=== PATIENT | male | born 1995 | race Two or more races ===

== ENCOUNTER 2022-10-08 17:46 | Emergency (ER) | payer OTHER, SELFPAY ==
--- NOTE | ~2022-10-08 | CT_ITS ---
EXAMINATION: CT PELVIS WITH CONTRAST CLINICAL INFORMATION: Rectal pain. COMPARISON: None available. TECHNIQUE: Helical scanning was performed with submillimeter collimation through the pelvis with the use of oral contrast and during bolus intravenous injection of 85 mL of Omnipaque 350 intravenous contrast. Sagittal and coronal multiplanar 2-D reconstructions were obtained. This CT examination was performed using dose optimization techniques as appropriate, variously including the following: *Automated exposure control *Adjustment of mA and/or kV according to patient size (this includes techniques or standardized protocols for targeted exams where dose is matched to indication/reason for exam; i.e. extremities or head) *Use of iterative reconstruction technique DLP: 367 mGy-cm FINDINGS: PELVIS: Normal appendix. Nonobstructive appearance of the bowel. No colonic wall thickening. No rectal wall thickening. No perianal inflammation or collection. No lymphadenopathy. No abdominal wall hernia. OSSEOUS STRUCTURES: No fracture or dislocation. The hips are well aligned. The sacroiliac joints and pubic symphysis are well aligned. CT/CT pelvis w IV con IMPRESSION: No acute abnormality of the pelvis. No rectal wall thickening. No fluid collection.
[2022-10-08 18:26] VITALS: BP 151/100; PULSE 92; RESP 16; TEMP 36.2; O2SAT 100; BMI 34.0
--- NOTE | 2022-10-08 18:30 | ED.GENADULT ---
HPI - General Adult General Chief complaint: General Medical Stated complaint: Pressure pain in groins Time Seen by Provider: 10/08/22 20:44 Source: patient and family Mode of arrival: ambulatory Limitations: no limitations History of Present Illness HPI narrative: 27-year-old male with history of rectal abscess here with complaints of rectal pain and pressure for last 1 week. No fevers, chills, body aches. Patient participates in receptive anal intercourse. Related Data Previous Rx's Medication Instructions Recorded amoxicillin 875 mg-potassium 1 tab PO BID #14 tabs 10/08/22 clavulanate 125 mg tablet oxycodone 5 mg tablet 5 mg PO Q6H PRN pain #8 tabs 10/08/22 Allergies Allergy/AdvReac Type Severity Reaction Status Date / Time Unable to Assess Allergy Verified 10/08/22 20:59 Review of Systems Review of Systems: Yes all other systems are reviewed and are negative Constitutional: Constitutional: Reports no additional constitutional complaints, Denies body ache(s), Denies chills, Denies fever(s), Denies headache(s) and Denies weakness Eyes: Eyes: Reports no additional eye complaints and Denies change in vision ENT: Reports system reviewed and no additional complaints, except as documented, Denies dizziness, Denies headache(s), Denies nasal congestion, Denies nasal discharge and Denies neck pain Cardiovascular: Cardiovascular: Reports no additional cardiovascular complaints, Denies chest pain, Denies leg edema and Denies dyspnea Respiratory: Respiratory: Reports no additional respiratory complaints, Denies cough and Denies dyspnea Gastrointestinal: Gastrointestinal: Reports no additional gastrointestinal complaints, Denies abdominal pain, Denies diarrhea, Denies nausea and Denies vomiting Comments: +rectal pain/pressure Genitourinary: Genitourinary: Denies urinary incontinence Musculoskeletal: Musculoskeletal: Reports no additional musculoskeletal complaints, Denies back pain, Denies arthralgias, Denies joint swelling, Denies neck pain, Denies numbness and Denies tingling Integumentary/Breasts: Skin/Breast: Reports system reviewed and no additional complaints, except as docu and Denies rash Neurologic: Reports system reviewed and no additional complaints, except as documented, Denies dizziness, Denies headache(s), Denies numbness, Denies tingling and Denies weakness [facility] Past Medical History Attestation statement: The following information was validated with the patient. Source: old records reviewed and nursing notes reviewed Social History Social History Alcohol intake: never Smoked in Last 30 Days: No Use of substances other than those prescribed or required for medical reasons: No Advance Directives: No Advance Directives Information Provided: No Physical Exam ED Vital Signs: Vital Signs - 24 hr 10/08/22 18:26 10/08/22 20:44 Temperature 97.2 F 98.1 F Pulse Rate 92 78 Respiratory Rate 16 17 Blood Pressure 151/100 H 137/90 H Pulse Oximetry 100 98 Oxygen Delivery Method Room Air BMI result Body Mass Index 34.0 Const General: cooperative, healthy appearing, comfortable and no acute distress Orientation/consciousness: patient oriented x3 Limitations: no limitations HENMT Head: Yes normal to inspection Ears: hearing grossly normal bilaterally Eyes General: appearance normal, both eyes and all related structures Pupils: Equal, round and reactive pupils present Neck Neck: Yes normal visual inspection Chest Chest palpation & inspection: normal inspection of the chest Resp Effort & Inspection: normal respiratory effort Auscultation: clear to auscultation bilaterally Cardio Rate: regular rate Rhythm: regular rhythm Peripheral pulses: Peripheral pulses 2+ throughout GI 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 The anus is indurated and tender Inspection: Yes normal to inspection Palpation (GI): Soft to palpation and nontender Skin General skin exam: no rashes or lesions noted Neuro General: patient oriented x3 and moves all extremities Cranial nerves: Yes Equal, round and reactive pupils present Cognition (Neuro): normal cognition Gait exam (Neuro): Normal gait present Extrem General: Yes normal to inspection, Yes no pedal edema and Yes no calf tenderness Course Course Course Narrative: This is an RME: Additional HPI, ROS, PE not included below will be deferred to primary provider. This is a 89-x[age]-male presenting to the emergency department with complaints of ?rectal abscess x 1 week. Hx of hemorrhoids over the last few weeks, but noticed increased pressure and pain. No fevers or chills. Unable to visualize area secondary to limited privacy in triage. Plan: further physical exam in main emergency department. Reevaluation(s) Reevaluation #1: CT shows no evidence of abscess or proctitis. However clinically on exam patient has significant induration and discomfort around the anal area. Therefore I will treat him with antibiotics. He may also have a fissure which I cannot see so we recommended pain management and topical [id number] creams. Recommend he follow-up with primary care doctor. Reviewed worrisome signs and symptoms when to return to the emergency room. Comfortable plan for discharge home for Medications Administered Discontinued Medications Generic Name Dose Route Start Last Admin Trade Name Pieter PRN Reason Stop Dose Admin Iohexol 100 ml 10/08/22 22:16 10/08/22 22:17 Iohexol 350 Mg/Ml 100 Ml Infus..Btl IV 10/08/22 22:17 85 ml ONCE ONE Administration Morphine Sulfate 4 mg 10/08/22 21:01 10/08/22 21:34 Morphine Sulfate 4 Mg/Ml Cartridge IVPUSH 10/08/22 21:02 4 mg ONCE ONE Administration Protocol Ondansetron HCl 4 mg 10/08/22 21:01 10/08/22 21:34 Ondansetron Hcl 4 Mg/2 Ml Vial IVPUSH 10/08/22 21:02 4 mg ONCE ONE Administration Medical Decision Making Medical Decision Making [facility] Narrative: 27 yo male with history of rectal abscess here with 3 days of rectal pain and pressure. On exam patient with significant anal tenderness and induration. Will need labs, CT pelvis with IV contrast Differential Diagnosis Differential Diagnoses: The differential diagnosis associated with the presentation includes Rectal abscess, Proctitis Lab Data [facility] Lab Attestation statement: I reviewed the patient's lab results. 10/08/22 21:17 10/08/22 21:17 Labs: Lab Results 10/08/22 10/08/22 10/08/22 Range/Units 21:17 21:17 21:17 WBC 8.7 (4.8-10.8) X10*3/uL RBC 5.26 (4.60-5.80) X10*6/uL Hgb 15.1 (14.0-18.0) g/dl Hct 45.0 (42.0-52.0) % MCV 85.6 (80.0-98.0) fL MCH 28.7 (27.0-33.0) pg MCHC 33.6 (31.0-36.0) g/dl RDW 12.4 (11.0-16.0) % Plt Count 226 (160-400) X10*3/uL MPV 10.9 (9.4-12.4) fL Immature Gran % (Auto) 0.2 (0.0-0.4) % Neut % (Auto) 63.8 (45-73) % Lymph % (Auto) 24.5 (20-40) % [place] % (Auto) 9.8 (2-11) % Eos % (Auto) 1.2 (0-4) % Baso % (Auto) 0.5 (0-2) % Lymph # (Auto) 2.1 (1.2-4.9) X10*3/uL [place] # (Auto) 0.9 (0.1-1.2) X10*3/uL Eos # (Auto) 0.1 (0.0-0.4) X10*3/uL Baso # (Auto) 0.0 (0.0-0.2) X10*3/uL Abs Immat Gran (auto) 0.02 (0.00-0.03) X10*3/uL Absolute Neuts (auto) 5.5 (2.0-8.3) x10*3/uL Absolute Nucleated RBC 0.000 (0.0-0.012) X10*3/uL Nucleated RBC % (auto) 0.0 (0.0-0.2) /100WBC Sodium 140 (135-145) mmol/L Potassium 3.7 (3.3-5.1) mmol/L Chloride 107 (96-108) mmol/L Carbon Dioxide 25 (22-29) mmol/L Anion Gap 12 (12-20) BUN 14 (9-16) mg/dL Creatinine 0.86 (0.5-1.4) mg/dL Estim Creat Clear Calc 152.2 Estimated GFR > 60 Random Glucose 95 (60-115) mg/dL Lactic Acid 1.1 (0.5-2.0) mmol/L Calcium 9.3 (8.4-10.2) mg/dL Total Bilirubin 0.4 (0.0-1.0) mg/dL Direct Bilirubin 0.1 (0.0-0.5) mg/dL AST 19 (5-37) U/L ALT 22 (0-40) U/L Alkaline Phosphatase 79 (39-117) U/L Total Protein 7.4 (6.5-8.0) g/dL Albumin 4.6 (3.5-5.0) g/dL Independent Interpretation I performed an independent interpretation of an: CT Scan Interpretation: I independently reviewed the CT scan and agree with the radiologist report Radiology Impression Discussion of test interpretation with radiology: I have reviewed the radiologist's reading. Radiologist Impression: FINDINGS: PELVIS: Normal appendix. Nonobstructive appearance of the bowel. No colonic wall thickening. No rectal wall thickening. No perianal inflammation or collection. No lymphadenopathy. No abdominal wall hernia.? OSSEOUS STRUCTURES: No fracture or dislocation. The hips are well aligned. The sacroiliac joints and pubic symphysis are well aligned.? CT/CT pelvis w IV con IMPRESSION: No acute abnormality of the pelvis. No rectal wall thickening. No fluid collection. ? Discharge Plan Discharge Clinical Impression: Pain, rectal Patient Disposition: Home, Self-Care Instructions: Sitz Bath (DC), Rectal Pain (ED) Additional Instructions: Avoid constipation Increase fluids and fiber in the diet You may continue the topical cream Prescriptions: New amoxicillin-pot clavulanate 875-125 mg tablet 1 tab PO BID Qty: 14 0RF oxycodone 5 mg tablet 5 mg PO Q6H PRN (Reason: pain) Qty: 8 0RF Rx Instructions: Partial Fill upon patient request. Referrals: Felton Capps PA-C [Primary Care Provider] - 1 week
[2022-10-08 20:44] VITALS: BP 137/90; PULSE 78; RESP 17; TEMP 36.7; O2SAT 98
[2022-10-08 21:24] LABS: MANUAL DIFF FLAG NO
[2022-10-08 21:25] LABS: Basophils Percent Auto 0.5 % (0-2); Eosinophils Absolute Auto 0.1 X10*3/uL (0.0-0.4); Eosinophils Percent Auto 1.2 % (0-4); Hemoglobin 15.1 g/dl (14.0-18.0); Imm Gran Abs Auto 0.02 X10*3/uL (0.00-0.03); Imm Gran Pct Auto 0.2 % (0.0-0.4); Lymphocytes Absolute Auto 2.1 X10*3/uL (1.2-4.9); Lymphocytes Percent Auto 24.5 % (20-40); Mean Corpuscular HGB Conc 33.6 g/dl (31.0-36.0); Mean Corpuscular Hemoglobin 28.7 pg (27.0-33.0); Mean Corpuscular Volume 85.6 fL (80.0-98.0); Mean Platelet Volume 10.9 fL (9.4-12.4); Monocytes Absolute Auto 0.9 X10*3/uL (0.1-1.2); Monocytes Percent Auto 9.8 % (2-11); Neutrophils Absolute Auto 5.5 x10*3/uL (2.0-8.3); Neutrophils Percent Auto 63.8 % (45-73); Platelet Count 226 X10*3/uL (160-400); Red Blood Count 5.26 X10*6/uL (4.60-5.80); Red Cell Distribution Width 12.4 % (11.0-16.0); White Blood Count 8.7 X10*3/uL (4.8-10.8)
[2022-10-08] MEDS: Morphine Sulfate 4 MG/ML CARTRIDGE IVPUSH (21:34)
[2022-10-08] MEDS: ondansetron HCL 4 MG/2 ML VIAL IVPUSH (21:34)
[2022-10-08 21:38] LABS: Lactic Acid 1.1 mmol/L (0.5-2.0)
[2022-10-08 21:43] LABS: Alanine Aminotransferase 22 U/L (0-40); Albumin Level 4.6 g/dL (3.5-5.0); Alkaline Phosphatase 79 U/L (39-117); Anion Gap 12 (12-20); Aspartate Amino Transferase 19 U/L (5-37); Bilirubin Direct 0.1 mg/dL (0.0-0.5); Bilirubin Total 0.4 mg/dL (0.0-1.0); Blood Urea Nitrogen 14 mg/dL (9-16); Calcium 9.3 mg/dL (8.4-10.2); Carbon Dioxide 25 mmol/L (22-29); Chloride 107 mmol/L (96-108); Creatinine Clr Calc Pharmacy 152.2; Estimated Glomerular Filt Rate > 60; Glucose Random 95 mg/dL (60-115); Potassium 3.7 mmol/L (3.3-5.1); Sodium 140 mmol/L (135-145); Total Protein 7.4 g/dL (6.5-8.0)
--- NOTE | 2022-10-08 21:51 | PC.NURSE ---
medicated with morphine and zofran, tolerated well
[2022-10-08] MEDS: iohexoL 350 MG/ML 100 ML INFUS..BTL IV (22:17)
--- NOTE | 2022-10-08 23:04 | PC.NURSE ---
pt reassessed, reported pain decreased to tolerable level, nausea subsided
== END 2022-10-08 23:46 | disposition home or self-care (01) ==
PROVIDERS: Nurse Practitioner Family; Emergency Provider Student in an Organized Health Care Education/Training Program; PCP Physician Assistant
DX: K62.89 Other specified diseases of anus and rectum (principal); R10.2 Pelvic and perineal pain; Z79.899 Other long term (current) drug therapy
CPT/HCPCS: 36415; 72193; 80048; 80076; 83605; 85025; 87040; 96374; 96375; 99284; J2270; J2405; Q9967

== ENCOUNTER 2023-01-19 10:24 | Outpatient (AMB) | payer OTHER, SELFPAY ==
[2023-01-19 10:35] VITALS: BP 118/86; PULSE 101; RESP 17; O2SAT 98; BMI 33.7
--- NOTE | 2023-01-19 10:35 | A.OFFPC_ITS ---
Vital Signs 01/19/23 10:35 Height 5 ft 9 in Weight 228 lb 2 oz BMI 33.7 BP 118/86 Blood Pressure Location Lt brachial Position Sitting Respiration 17 Pulse 101 H Pulse Source Pulse Oximeter Pulse Oximetry (%) 98 Oxygen Delivery Method Room Air Intake Visit Reasons: New Patient- requesting physical Intake Note: Patient is a new patient here to establish care. Pt requesting PE, has not seen a PCP in over six years. 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 Patient has not seen primary care provider in over 6 years. Patient has a past medical history significant for obesity, reports having varicose viens that bother him on occasion. He does report working at [employer] and he has to stand a lot work. Also report his right testicle is somewhat tender over the last several months. 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 1. Little interest or pleasure in doing things: not at all 2. Feeling down, depressed, or hopeless: several days 3. Trouble falling or staying asleep, or sleeping too much: several days 4. Feeling tired or having little energy: more than half the days 5. Poor appetite or overeating: several days 6. Feeling bad about yourself - or that you are a failure or have let yourself or your family down: several days 7. Trouble concentrating on things, such as reading the newspaper or watching television: not at all 8. Moving or speaking so slowly that other people could have noticed. Or the opposite - being so fidgety or restless that you have been moving around a lot more than usual: several days 9. Thoughts that you would be better off or of hurting yourself in some way: not at all Total score: 7 Depression Screening Interpretation: Positive 61308 - PHQ-9 Billing: Yes Source: Developed by Drs. Khoi Batista, Court Cohen, Robert Cardoza and colleagues, with an educational greta from [employer]. Thrive Questionnaire Date Thrive assessed: 01/19/23 I am a: Patient What is your living situation today?: I have a steady place to live Within the past 12 months, did the food you bought not last and you didn't have the money to get more?: Never true Within the past 12 months, did you worry whether your food would run out before you got money to buy more?: Never true Do you have trouble paying for medicines?: No Do you have trouble getting transportation to medical appointments?: No Do you have trouble paying your heating and electricity bill?: No Do you have trouble taking care of your child, family member or friend?: No Do you have trouble with day-to-day activities such as bathing, preparing meals, shopping, managing finances, etc.?: No Are you currently unemployed and looking for a job?: No Are you interested in more education?: No Please select the resources that you would like help with: None Currently or been in a relationship where the following occur: no concerns reported AUDIT C Alcohol Use Questionnaire (AUDIT-C) 1. How often do you have a drink containing alcohol?: 2-4 times a month 2. How many drinks containing alcohol do you have on a typical day when you are drinking?: 7 to 9 3. How often do you have six or more drinks on one occasion?: Less than monthly Total Score: 6 JANIE-7 AMB Questionnaire JANIE-7 Date JANIE - 7 assessed: 01/19/23 Feeling nervous, anxious, or on edge: 1 = Several days Not being able to stop or control worryin = Nearly every day Worrying too much about different things: 3 = Nearly every day Trouble relaxin = More than half the days Being so restless that it is hard to sit still: 1 = Several days Becoming easily annoyed or irritable: 2 = More than half the days Feeling afraid as if something awful might happen: 3 = Nearly every day Total JANIE-7 score (0-4 normal; 5-9 mild; 10-14 moderate; 15-21 severe): 15 Source: Developed by Drs. Khoi Batista, Court Cohen, Robert Cardoza and colleagues, with an educational greta from [employer]. JANIE-7 Assessment Billing JANIE-7 Assessment Tool: JANIE-7 Assessment 42430 Review of Systems Const Denies body aches, Denies chills, Denies excessive sweating, Denies fatigue, Denies fever(s) and Denies headache(s) Eyes Denies blurry vision ENT Denies dysphagia, Denies vertigo, Denies dizziness, Denies headache(s), Denies hearing loss and Denies tinnitus Card Denies chest pain, Denies chest pain with activity, Denies syncope, Denies irregular heart rhythm and Denies dyspnea Resp Denies chest congestion, Denies cough, Denies hemoptysis, Denies dyspnea and Denies wheezing GI Denies abdominal pain, Denies melena, Denies hematochezia, Denies coffee ground emesis, Denies dysphagia, Denies diarrhea, Denies nausea and Denies vomiting Denies difficulty urinating, Denies dysuria, Denies urinary frequency, Denies urinary hesitancy and Denies urinary urgency Musc Denies arthralgias, Denies limited range of motion, Denies muscle cramps and Denies muscle weakness Skin/Breast Denies rash and Denies skin ulcer Neuro Denies Abnormal speech present, Denies confusion, Denies vertigo, Denies dizziness, Denies syncope, Denies headache(s), Denies memory loss and Denies seizure-like activity Psych Denies anxiety, Denies confusion, Denies depression, Denies memory loss, Denies panic attacks and Denies paranoia Endo Denies excessive sweating, Denies fatigue, Denies flushing, Denies polydipsia and Denies polyuria Aller/Immun Denies wheezing Physical exam (Primary Care) Vital Signs: Last Vital Signs Pulse 101 H 01/19/23 10:35 Resp 17 01/19/23 10:35 BP 118/86 01/19/23 10:35 Pulse Ox 98 01/19/23 10:35 Oxygen Delivery Method Room Air 01/19/23 10:35 BMI result Body Mass Index 33.7 BMI Assessment/Plan discussion: High Tobacco/Smoking Status: Tobacco use Status Tobacco use date assessed 01/19/23 01/19/23 10:49 Patient Tobacco Use Status Never used Tobacco 01/19/23 10:59 e-Cigarette/Vaping Use Never Used 01/19/23 10:59 PHQ-9: PHQ-9 Score PHQ-9: Total score 7 01/19/23 11:10 Depression Screening Interpretation: Positive Thrive Assessment: Date of Thrive Assessment Date Thrive assessed 01/19/23 01/19/23 10:49 Currently or been in a relationship where the following occur: no concerns reported Const Other: Obese General: cooperative, comfortable, no acute distress, alert and awake; No confusion Orientation/consciousness: oriented to person, oriented to place, patient oriented x3 and No confusion HENMT Head: Yes normocephalic Ears: external ears normal and TM's normal bilaterally Face and sinus: No sinus tenderness Mouth: Normal oral and palatal mucosa present and tongue normal Teeth and gingiva: dentition normal and gingiva normal Throat: Yes posterior oropharynx normal, Yes tonsils normal and Yes uvula midline Eyes Conjunctivae: conjunctivae normal Sclerae: sclerae normal Pupils: Equal, round and reactive pupils present EOM: EOMs intact bilaterally Direct Ophthalmoscopy: No no photophobia Neck Neck: Yes no lymphadenopathy, No tender and Yes no JVD Thyroid: Thyroid normal Carotids: no bruits Chest Chest palpation & inspection: no tenderness Resp Effort & Inspection: normal respiratory effort, no audible wheezes, not labored and no stridor Auscultation: no crackles, no rales, no rhonchi and no wheezes Cardio Jugular venous distension: no JVD Rate: regular rate, not bradycardic and not tachycardic Rhythm: regular rhythm Bruits: no carotid bruits Peripheral pulses: Peripheral pulses 2+ throughout GI Inspection: Yes normal to inspection, No abdominal wall ecchymosis and No visible herniation Palpation (GI): Soft to palpation, nontender, no guarding, not rigid and No hepatosplenomegaly present Auscultation: normoactive bowel sounds General: Yes no CVA tenderness Back/Spine/Pelvis Back: no CVA tenderness and No back tenderness Cervical Spine: cervical ROM normal Thoracic/Lumbar Spine: thoracic and lumbar spine normal to inspection, straight leg raise negative bilaterally, No thoraco-lumbar ROM limited and No lumbar spinal tenderness Skin Lesions: no lesions Rashes: no rashes Wounds: no wounds Neuro General: oriented to person, oriented to place, patient oriented x3, CN's II-XI intact bilaterally and No confusion Cranial nerves: Yes Equal, round and reactive pupils present and Yes Normal accommodation reflex present Cognition (Neuro): normal cognition Speech: No Abnormal speech present Gait exam (Neuro): Normal gait present Motor exam (neuro): 5/5 motor strength present throughout Extrem Right upper extremity: full ROM; no cyanosis Left upper extremity: full ROM; no cyanosis Right lower extremity: no edema Left lower extremity: no edema Psych Appearance: grossly normal Mental Status: mental status grossly normal Affect: normal affect Attitude: cooperative Thought process: Normal thought process present Immunizations Boostrix Tdap 2.5 Lf unit-8 mcg-5 Lf/0.5 mL intramuscular syringe Performing Provider: Felton Capps PA-C [facility] Administered by: NILSA Hillman on 01/19/23 11:10 Dose Route Admin Location Dispensed Lot Number Expiration Date NDC Plumbing Technician 0.5 mL IM Left Deltoid 0.5 mL [id number] 01/25/25 12488-841-37 Break30 VIS Given Date VIS Provided VIS Publication Date 01/19/23 Single Vaccine 20 Eligibility Eligibility Date Funding Source Not [facility] Eligible 01/19/23 Private Assessment and Plan Assessment & Plan (1) Annual physical exam: Code(s): Z00.00 - Encounter for general adult medical examination without abnormal findings (2) Testicular pain: Code(s): N50.819 - Testicular pain, unspecified Qualifiers: Laterality: left Qualified Code(s): N50.812 - Left testicular pain Plan: Physical exam without any notable varicosities or masses. Will send for scrotal ultrasound to evaluate for any epididymal cyst or hydrocele. (3) Obese: Code(s): E66.9 - Obesity, unspecified Qualifiers: Body mass index: BMI 33.0-33.9 Obesity classification: adult class 1 (BMI 30 - 34.9) Obesity type: due to excess calories Serious obesity comorbidity presence: without serious comorbidity Qualified Code(s): E66.09 - Other obesity due to excess calories; Z68.33 - Body mass index [BMI] 33.0-33.9, adult Plan: Patient does understand his BMI is over 30 will work on being more physically active and adapting to better eating habits to reduce his weight (4) Screening for diabetes mellitus (DM): Code(s): Z13.1 - Encounter for screening for diabetes mellitus (5) Symptomatic varicose veins of both lower extremities: Code(s): I83.893 - Varicose veins of bilateral lower extremities with other complications Plan: Does report bilateral varicose veins that bother him from time to time. He does work a job where he stands a lot at work which causes varicose veins to be more tender. He occasionally uses compression socks. He would like to see vascular surgeon for possible procedural fix. Orders: Orders Comprehensive [place]. Panel Fast Today Z13.1 - Encounter for screening for diabetes mellitus scrotum Today N50.812 - Left testicular pain TDaP Immunization Today N50.812 - Left testicular pain, Z23 - Encounter for immunization Referrals Vascular Surgery Referral I83.893 - Varicose veins of bilateral lower extremities with other complications Coding Level of Care Code New Pt Prev Care [id number] Diagnoses Annual physical exam Z00.00 Pain in left testicle N50.812 Laterality: left Class 1 obesity due to excess calories without serious comorbidity with body mass index (BMI) of 33.0 to 33.9 in adult E66.09; Z68.33 Body mass index: BMI 33.0-33.9 Obesity classification: adult class 1 (BMI 30 - 34.9) Obesity type: due to excess calories Serious obesity comorbidity presence: without serious comorbidity Screening for diabetes mellitus (DM) Z13.1 Symptomatic varicose veins of both lower extremities I83.893 Additional Codes JANIE-7 Assessment Billing - JANIE-7 Assessment Tool: JANIE-7 Assessment 20252 ([id number])
== END 2023-01-19 11:14 | disposition home or self-care (01) ==
PROVIDERS: PCP Physician Assistant; Visit Provider Physician Assistant
DX: Z00.00 Encounter for general adult medical examination without abnormal findings (principal); N50.812 Left testicular pain; E66.09 Other obesity due to excess calories; Z68.33 Body mass index [BMI] 33.0-33.9, adult; Z23 Encounter for immunization; Z13.1 Encounter for screening for diabetes mellitus; I83.893 Varicose veins of bilateral lower extremities with other complications
CPT/HCPCS: 90471; 90715; 99385

== ENCOUNTER 2023-08-17 09:22 | Outpatient (AMB) | payer OTHER, SELFPAY ==
--- NOTE | 2023-08-17 09:23 | MHC.PC.OV ---
Vital Signs 08/17/23 09:24 08/17/23 09:46 Height 5 ft 9 in Weight 238 lb 6 oz BMI 35.2 BP 140/92 H 130/88 Blood Pressure Location Lt brachial Position Sitting Pulse 102 H Pulse Source Pulse Oximeter Pulse Oximetry (%) 97 Oxygen Delivery Method Room Air Intake Visit Reasons: f/u Intake Note: The patient is worried about high blood pressure and experiencing discomfort on the left side of the rib cage. Additionally, over the past two weeks, the patient has been experiencing hearing loss in the left ear. 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 Patient has a past medical history significant for obesity and lower extremity varicosities. Concerns--> noted elevated blood pressure readings today in office. He does report feeling somewhat dizzy at times at work and needs to sit down. He does report intermittently having he left-sided under his rib pressure type pain that he rates a 2/10. He attributes this to having a gas buildup . He does admit to drinking a lot of coffee during the day. Works at [employer]. PLAN: Will try to reduce his caffeine intake and monitor blood pressure at home. reporting bilateral ear congestion. He does report using an ear wax removal which she removed ear wax. On physical exam today does have air-fluid levels on his right ear drum. PLAN: Will try antihistamine and nasal spray .. Obesity: Unfortunately gained weight since last office visit . 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 1. Little interest or pleasure in doing things: not at all 2. Feeling down, depressed, or hopeless: not at all 3. Trouble falling or staying asleep, or sleeping too much: not at all 4. Feeling tired or having little energy: not at all 5. Poor appetite or overeating: not at all 6. Feeling bad about yourself - or that you are a failure or have let yourself or your family down: not at all 7. Trouble concentrating on things, such as reading the newspaper or watching television: not at all 8. Moving or speaking so slowly that other people could have noticed. Or the opposite - being so fidgety or restless that you have been moving around a lot more than usual: not at all 9. Thoughts that you would be better off or of hurting yourself in some way: not at all Total score: 0 Depression Screening Interpretation: Negative Depression Screening Done: Yes 79936 - PHQ-9 Billing: Yes Source: Developed by Drs. Khoi Batista, Court Cohen, Robert Cardoza and colleagues, with an educational greta from [employer]. Thrive Questionnaire Date Thrive assessed: 08/17/23 I am a: Patient What is your living situation today?: I have a steady place to live Within the past 12 months, did the food you bought not last and you didn't have the money to get more?: Never true Within the past 12 months, did you worry whether your food would run out before you got money to buy more?: Never true Do you have trouble paying for medicines?: No Do you have trouble getting transportation to medical appointments?: No Do you have trouble paying your heating and electricity bill?: No Do you have trouble taking care of your child, family member or friend?: No Do you have trouble with day-to-day activities such as bathing, preparing meals, shopping, managing finances, etc.?: No Are you currently unemployed and looking for a job?: No Are you interested in more education?: No Please select the resources that you would like help with: None Currently or been in a relationship where the following occur: no concerns reported THRIVE Score: 0 AUDIT C Alcohol Use Questionnaire (AUDIT-C) 1. How often do you have a drink containing alcohol?: 2-4 times a month 2. How many drinks containing alcohol do you have on a typical day when you are drinking?: 7 to 9 3. How often do you have six or more drinks on one occasion?: Less than monthly Total Score: 6 JANIE-7 AMB Questionnaire JANIE-7 Date JANIE - 7 assessed: 08/17/23 Feeling nervous, anxious, or on edge: 0 = Not at all Not being able to stop or control worryin = Not at all Worrying too much about different things: 0 = Not at all Trouble relaxin = Not at all Being so restless that it is hard to sit still: 0 = Not at all Becoming easily annoyed or irritable: 0 = Not at all Feeling afraid as if something awful might happen: 0 = Not at all Total JANIE-7 score (0-4 normal; 5-9 mild; 10-14 moderate; 15-21 severe): 0 Source: Developed by Drs. Khoi Batista, Court Cohen, Robert Cardoza and colleagues, with an educational greta from [employer]. JANIE-7 Assessment Billing JANIE-7 Assessment Tool: JANIE-7 Assessment [id number] Review of Systems Const Denies headache(s) Eyes Denies loss of vision ENT Denies vertigo, Denies dizziness, Denies headache(s) and Denies sore throat Card Denies chest pain, Denies leg edema and Denies lightheadedness Resp Denies cough, Denies hemoptysis and Denies wheezing GI Denies abdominal pain, Denies melena, Denies constipation, Denies diarrhea and Denies vomiting Denies dysuria, Denies urinary frequency and Denies urinary urgency Musc Denies arthralgias, Denies joint swelling, Denies numbness and Denies tingling Neuro Denies Abnormal speech present, Denies behavioral changes, Denies vertigo, Denies dizziness, Denies headache(s), Denies loss of vision, Denies memory loss, Denies numbness and Denies tingling Psych Denies anxiety, Denies behavioral changes, Denies depression, Denies memory loss and Denies panic attacks Giovanny/Lymph Denies easy bleeding and Denies easy bruising Aller/Immun Denies wheezing Physical exam (Primary Care) Vital Signs: Last Vital Signs Pulse 102 H 08/17/23 09:24 BP 140/92 H 08/17/23 09:24 Pulse Ox 97 08/17/23 09:24 Oxygen Delivery Method Room Air 08/17/23 09:24 BMI result Body Mass Index 35.2 Tobacco/Smoking Status: Tobacco use Status Tobacco use date assessed 08/17/23 08/17/23 09:24 Patient Tobacco Use Status Never used Tobacco 08/17/23 09:24 e-Cigarette/Vaping Use Never Used 08/17/23 09:24 PHQ-9: PHQ-9 Score PHQ-9: Total score 0 08/17/23 09:31 Depression Screening Interpretation: Negative Thrive Assessment: Date of Thrive Assessment Date Thrive assessed 08/17/23 08/17/23 09:31 Currently or been in a relationship where the following occur: no concerns reported Const General: healthy appearing, no acute distress, alert and awake Nutritional Appearance: well nourished Orientation/consciousness: oriented to person, oriented to place and oriented to time HENMT Other: AIR-FLUID LEVELS NOTED BEHIND TYMPANIC MEMBRANES BILATERALLY. Ears: TM's normal bilaterally General nose exam: Normal nasal mucous membranes and turbinates present Eyes Conjunctivae: conjunctivae normal Sclerae: sclerae normal Pupils: Equal, round and reactive pupils present Neck Neck: Yes no lymphadenopathy and Yes no JVD Thyroid: Thyroid normal Carotids: no bruits Resp Effort & Inspection: normal respiratory effort and not tachypneic Auscultation: no crackles, no rales, no rhonchi and no wheezes Cardio Rate: regular rate Rhythm: regular rhythm Heart sounds: no murmurs and normal S1 and S2 GI Palpation (GI): Soft to palpation, nontender, no hepatomegaly and no splenomegaly Auscultation: normal bowel sounds Skin General skin exam: no rashes or lesions noted and dry skin Neuro General: oriented to person, oriented to place and oriented to time Cranial nerves: Yes Equal, round and reactive pupils present Speech: No Abnormal speech present Gait exam (Neuro): Normal gait present Motor exam (neuro): no tremor noted Extrem Right upper extremity: full ROM Left upper extremity: full ROM Right lower extremity: full ROM; no edema Left lower extremity: full ROM; no edema Psych Mental Status: mental status grossly normal Speech and movement: Normal speech and movement present Affect: normal affect Attitude: cooperative Thought process: Normal thought process present Assessment and Plan Assessment & Plan (1) Elevated blood pressure reading: Code(s): R03.0 - Elevated blood-pressure reading, without diagnosis of hypertension Plan: Noted elevated blood pressure reading today in office. He does report at times feeling a bit dizzy and having to sit down. Likely related to his caffeine intake. Advised to reduce caffeine intake and monitor blood pressure at home goal pressure be below 140/90. If consistently above 140/90 will consider starting hydrochlorothiazide. (2) Rib pain on left side: Code(s): R07.81 - Pleurodynia Plan: Will send for chest x-ray to evaluate lung etiology (3) Ear congestion: Code(s): H93.8X9 - Other specified disorders of ear, unspecified ear Qualifiers: Laterality: bilateral Qualified Code(s): H93.8X3 - Other specified disorders of ear, bilateral Plan: Does have air-fluid levels behind tympanic membrane. Will supply patient with antihistamine and nasal spray Orders: Orders Comprehensive [place]. Panel Fast Today Z13.1 - Encounter for screening for diabetes mellitus XR ribs LT min 3V w CXR1V Today R07.81 - Pleurodynia Medications: New loratadine 10 mg PO DAILY 30 tabs 2RF H93.8X3 - Other specified disorders of ear, bilateral miscellaneous medical supply (Blood Pressure Cuff) Testing once a day 1 ea 0RF H93.8X3 - Other specified disorders of ear, bilateral, I10 - Essential (primary) hypertension, R03.0 - Elevated blood-pressure reading, without diagnosis of hypertension fluticasone propionate 50 mcg/actuation (Flonase Allergy Relief) administer into each nostril 1 spray intranasal BID 30 days 16 grams 0RF H93.8X3 - Other specified disorders of ear, bilateral Coding Level of Care Code Est Pt Level 4 (00883) Diagnoses Elevated blood pressure reading R03.0 Rib pain on left side R07.81 Congestion of both ears H93.8X3 Laterality: bilateral Additional Codes JANIE-7 Assessment Billing - JANIE-7 Assessment Tool: JANIE-7 Assessment [id number] ([id number])
[2023-08-17 09:24] VITALS: BP 140/92; PULSE 102; O2SAT 97; BMI 35.2
[2023-08-17 09:46] VITALS: BP 130/88
== END 2023-08-17 10:00 | disposition home or self-care (01) ==
PROVIDERS: PCP Physician Assistant; Visit Provider Physician Assistant
DX: R03.0 Elevated blood-pressure reading, without diagnosis of hypertension (principal); R07.81 Pleurodynia; H93.8X3 Other specified disorders of ear, bilateral
CPT/HCPCS: 99214

== ENCOUNTER 2023-08-17 10:04 | Outpatient (REF) | payer OTHER, SELFPAY ==
--- NOTE | ~2023-08-17 | XR_ITS ---
EXAMINATION: XR RIBS, LEFT CLINICAL INFORMATION: Pleurodynia. COMPARISON: None available. TECHNIQUE: 5 views of the left ribs were obtained, together with a PA view of the chest. FINDINGS: Lungs are clear. No consolidation, pneumothorax, or pleural effusion. The cardiomediastinal silhouette and pulmonary vasculature are normal. Osseous structures are unremarkable. Ribs are intact. No fractures are identified. XR/XR ribs LT min 3V w CXR1V IMPRESSION: Unremarkable examination.
[2023-08-17 11:22] LABS: Alanine Aminotransferase 32 U/L (0-40); Albumin Level 4.4 g/dL (3.5-5.0); Anion Gap 9 (12-20); Aspartate Amino Transferase 25 U/L (5-37); Bilirubin Total 0.5 mg/dL (0.0-1.0); Blood Urea Nitrogen 11 mg/dL (9-16); Calcium 9.1 mg/dL (8.4-10.2); Carbon Dioxide 27 mmol/L (22-29); Chloride 106 mmol/L (96-108); Estimated Glomerular Filt Rate > 60; Glucose Fasting 100 mg/dL (60-99); Potassium 4.4 mmol/L (3.3-5.1); Sodium 138 mmol/L (135-145); Total Protein 7.5 g/dL (6.5-8.0)
[2023-08-17 11:37] LABS: Alkaline Phosphatase 83 U/L (39-117)
== END 2023-08-17 10:05 | disposition home or self-care (01) ==
LOC: HO.LAB 10:04
PROVIDERS: PCP Physician Assistant; Visit Provider Physician Assistant
DX: Z13.1 Encounter for screening for diabetes mellitus (principal); R07.81 Pleurodynia
CPT/HCPCS: 36415; 71101; 80053

== ENCOUNTER 2023-09-29 10:21 | Outpatient (AMB) | payer OTHER, SELFPAY ==
--- NOTE | 2023-09-29 10:38 | MHC.OFFVIS ---
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 States the left leg is worse. Patient works on his feet around 9-10 hours a day. He has noticable rope like veins in the left calf. They get itchy. They cramp once in a while Non smoker and non diabetic. 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 Complaints include pain over varicosities, swelling of lower extremities, cramping, fatigue, and heaviness of the lower extremities. It has been affecting there daily activities including working ambulatory job at [email or web address] were he does 10 hour shifts. It is noted more so in left calf leg. Patient denies any previous venous surgery or injections. He was evaluated nearly 6 years ago but decided against intervention at that time. Patient denies any history of DVT/ PE. Patient denies any history of phlebitis. Trial of compression includes - prescription compression for over 6 year They now present for vascular evaluation regarding their varicose veins. 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 [employer] Cognitive needs: No Hearing needs: No Vision needs: No Review of Systems Const Reports as per HPI ENT Reports no additional complaints Card Denies chest pain, Denies chest pain at rest and Denies chest pain with activity Resp Denies chest congestion and Denies cough GI Reports no additional complaints Musc Details: pain over varicosities, aching of lower extremities, swelling, cramping, heaviness and tiredness, itching Denies abnormal gait Skin/Breast Reports pruritus and Denies wounds Neuro Reports no additional complaints and Denies abnormal gait Psych Denies no additional complaints Physical Exam Const General: cooperative, healthy appearing and comfortable Orientation/consciousness: oriented to person, oriented to place and oriented to time Neck Carotids: no bruits Chest Chest palpation & inspection: normal inspection of the chest and normal palpation of entire chest wall Resp Effort & Inspection: normal respiratory effort and able to speak in complete sentences Cardio Rate: regular rate Heart sounds: S1 normal heart sound present and S2 normal heart sound present Peripheral pulses: Peripheral pulses 2+ throughout GI Inspection: Yes normal to inspection Skin Other: +2 edema, large rope-like varicosities greater than 4 mm left calf CEAP Classification C4 - skin color changes Ep - Etiology Primary As - superficial veins P - reflux General skin exam: dry skin Neuro General: oriented to person, oriented to place and oriented to time Extrem Right lower extremity: full ROM, normal capillary refill and edema Left lower extremity: full ROM, normal capillary refill and edema Psych Mental Status: mental status grossly normal Assessment & Plan Assessment & Plan (1) Varicose veins of left lower extremity with inflammation: Code(s): I83.12 - Varicose veins of left lower extremity with inflammation Category: Medical Plan: In short, the patient has evidence of venous insufficiency. I have discussed the pathophysiology with the patient. In addition I have provided informational material regarding venous disease to the patient. We have discussed conservative measures including compression, elevation, and exercise. I have also provided a handout regarding appropriate use of compression stockings and where to purchase good compression stockings as well. I have taken the liberty of ordering venous insufficiency testing with the patient. They will follow up with me after testing. The patient had an opportunity to ask questions regarding the treatment plan. All questions were answered. Imaging studies, laboratory studies and physical exam results were discussed and reviewed in detail. No major barriers to understanding were identified. The patient expressed understanding and agreement with the above treatment plan. The patient is aware they should contact our office by phone for worsening of the current condition or the appearance of new symptoms. Thank you for allowing me to participate in the vascular care of this patient. If you have any questions or concerns regarding the treatment for the above condition please do not hesitate to contact me. The office telephone contact is [phone]. This note is constructed using voice recognition software. While every effort has been made to ensure accuracy, central sterilization technician errors may have been included. Thank you for allowing me to participate in the care of your patient. Yours sincerely, Catracho Echavarria MD, FACS, R.P.V.I. Orders: Orders US venous duplex LE BI 1 Week I83.12 - Varicose veins of left lower extremity with inflammation Coding Level of Care Code New Pt Level 4 (55066) Diagnoses Varicose veins of left lower extremity with inflammation I83.12
== END 2023-09-29 10:57 | disposition home or self-care (01) ==
PROVIDERS: PCP Physician Assistant; Visit Provider Surgery Vascular Surgery
DX: I83.12 Varicose veins of left lower extremity with inflammation (principal)
CPT/HCPCS: 99203

== ENCOUNTER → 2023-09-29 10:21 | Outpatient (BNVA) | payer OTHER, SELFPAY | PROVIDERS: PCP Physician Assistant; Visit Provider Surgery Vascular Surgery ==

== ENCOUNTER 2023-10-27 10:13 | Outpatient (REF) | payer OTHER, SELFPAY ==
--- NOTE | ~2023-10-27 | US_ITS ---
EXAMINATION: US LOWER EXTREMITY VENOUS (REFLUX EXAM), BILATERAL CLINICAL INDICATION: Varicose veins of left lower extremity with inflammation COMPARISON: None. TECHNIQUE: Color flow triplex imaging and compression Doppler was performed to evaluate both the deep and the superficial systems bilaterally. To evaluate the superficial system, the examination was performed in the upright position. Color-flow Doppler ultrasound and compression ultrasound were utilized. In addition, maneuvers were utilized to demonstrate reflux. FINDINGS: 1. DEEP VENOUS ULTRASOUND OF THE RIGHT LOWER EXTREMITY: Common Femoral Vein: Compressible, normal respiratory variation and augmented flow. Femoral Vein: Compressible, normal color flow and augmentation. Popliteal Vein: Compressible, normal augmentation. Deep Reflux: There is no evidence of reflux in the deep system in either the common femoral vein, superficial femoral or the popliteal vein. There is no evidence of a Vela's cyst. 2. SUPERFICIAL ULTRASOUND WITH DOPPLER OF RIGHT LOWER EXTREMITY: GREAT SAPHENOUS VEIN: Saphenofemoral Junction: 1.1 cm; Reflux: 0 ms Proximal Thigh: 0.9 cm; Reflux: 1316 ms Mid Thigh: 0.7 cm; Reflux: 1836 ms Above Knee: 0.7 cm; Reflux: 1760 ms At Knee: 0.7 cm; Reflux: 1324 ms Below Knee: 0.6 cm; Reflux: 1540 ms Mid Calf: 0.3 cm; Reflux: 0 ms Ankle: 0.4 cm; Reflux: 0 ms DUPLICATED LATERAL GREAT SAPHENOUS VEIN: Saphenofemoral Junction: 0.3 cm; Reflux: 0 ms Mid Thigh: 0.3 cm; Reflux: 0 ms SMALL SAPHENOUS VEIN: Nonvisualized VEIN OF GIACOMINI: Size: NA; Reflux: 0 ms PERFORATORS: Location: Mid calf Size: 0.2; Reflux: 0 ms Location: Distal calf Size: 0.6; Reflux: 0 ms VARICOSITIES: Location: Mid thigh Size: 0.3; Reflux: 0 ms Location: Proximal calf Size: 0.5; Reflux: 0 ms Location: Mid calf Size: 0.4; Reflux: 1236 ms Location: Distal calf Size: 0.5; Reflux: 0 ms 3. DEEP VENOUS ULTRASOUND OF THE LEFT LOWER EXTREMITY: Common Femoral Vein: Compressible, normal respiratory variation and augmented flow. Femoral Vein: Compressible, normal color flow and augmentation. Popliteal Vein: Compressible, normal augmentation. Deep Reflux: There is no evidence of reflux in the deep system in either the common femoral vein, superficial femoral or the popliteal vein. There is no evidence of a Vela's cyst. 4. SUPERFICIAL ULTRASOUND WITH DOPPLER OF LEFT LOWER EXTREMITY: GREAT SAPHENOUS VEIN: Saphenofemoral Junction: 1.0 cm; Reflux: 0 ms Proximal Thigh: 1.0 cm; Reflux: 0 ms Mid Thigh: 0.8 cm; Reflux: 1040 ms Above Knee: 0.8 cm; Reflux: 1756 ms At Knee: 0.7 cm; Reflux: 2320 ms Below Knee: 0.8 cm; Reflux: 1624 ms Mid Calf: 0.4 cm; Reflux: 0 ms Ankle: 0.4 cm; Reflux: 0 ms DUPLICATED MEDIAL GREAT SAPHENOUS VEIN: Saphenofemoral Junction: 0.4 cm; Reflux: 0 ms Mid Thigh: 0.3 cm; Reflux: 0 ms SMALL SAPHENOUS VEIN: Saphenopopliteal Junction: 0.2 cm; Reflux: 0 ms Proximal: 0.3 cm; Reflux: 0 ms Distal: 0.2 cm; Reflux: 0 ms PERFORATORS: Location: Distal calf Size: 0.3; Reflux: 0 ms VARICOSITIES: Location: Mid calf Size: 0.4; Reflux: 0 ms Location: Proximal calf Size: 0.8; Reflux: 0 ms US/US venous duplex LE BI IMPRESSION: 1. No evidence of deep venous thrombosis or reflux. 2. Segmental incompetence of the right great saphenous vein from the level of the proximal thigh to the proximal calf with reflux measuring up to 1836 ms. 3. Segmental incompetence of the left great saphenous vein from the level of the mid thigh to the proximal calf with reflux measuring up to 2320 ms. 4. Competent left duplicated medial great saphenous vein, right duplicated lateral great saphenous vein, and left small saphenous vein. The right saphenous vein is not visualized. 5. Varicose veins in the bilateral lower legs measuring 3 to 8 mm in diameter, one of which demonstrate significant reflux on the right measuring up to 1236 ms.
== END 2023-10-27 10:14 | disposition home or self-care (01) ==
LOC: HO.US 10:13
PROVIDERS: PCP Physician Assistant; Visit Provider Surgery Vascular Surgery
DX: I83.12 Varicose veins of left lower extremity with inflammation (principal)
CPT/HCPCS: 93970

== ENCOUNTER 2023-12-01 10:35 | Outpatient (AMB) | payer OTHER, SELFPAY ==
[2023-12-01 10:39] VITALS: BMI 35.1
--- NOTE | 2023-12-01 10:39 | MHC.OFFVIS ---
Vital Signs 12/01/23 10:39 Height 5 ft 9 in Weight 238 lb BMI 35.1 Intake Visit Reasons: follow up s/p 10/27/2023 Intake Note: follow up 10/27/2023, Left LE worse than Right LE, hasbilateral rope like VV w/ swelling. Pt states he has been getting stabbing pain over varicosities. Accompanied by: Self / Same As Patient Allergies No Known Allergies Allergy (Verified 12/01/23 10:44) HPI HPI follow up s/p 10/27/2023: Details: Very pleasant 28-year-old gentleman presents for follow-up regarding venous disease. He has significantly swollen painful lower extremities. In addition he has large cluster varicosities in the left calf. It has been affecting his daily work including working at [employer]. Now presents for follow-up with venous insufficiency testing. Of note he has been compliant with his compression stockings with minimal relief. 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 [employer] Cognitive needs: No Hearing needs: No Vision needs: No Review of Systems Const Reports as per HPI ENT Reports no additional complaints Card Denies chest pain, Denies chest pain at rest and Denies chest pain with activity Resp Denies chest congestion and Denies cough GI Reports no additional complaints Musc Details: pain over varicosities, aching of lower extremities, swelling, cramping, heaviness and tiredness, itching Denies abnormal gait Skin/Breast Reports pruritus and Denies wounds Neuro Reports no additional complaints and Denies abnormal gait Psych Denies no additional complaints Physical Exam Vital Signs: BMI result Body Mass Index 35.1 Const General: cooperative, healthy appearing and comfortable Orientation/consciousness: oriented to person, oriented to place and oriented to time Neck Carotids: no bruits Chest Chest palpation & inspection: normal inspection of the chest and normal palpation of entire chest wall Resp Effort & Inspection: normal respiratory effort and able to speak in complete sentences Cardio Rate: regular rate Heart sounds: S1 normal heart sound present and S2 normal heart sound present Peripheral pulses: Peripheral pulses 2+ throughout GI Inspection: Yes normal to inspection Skin Other: +2 edema, large rope-like varicosities greater than 4 mm large cluster left calf CEAP Classification C4 - skin color changes Ep - Etiology Primary As - superficial veins P - reflux General skin exam: dry skin Neuro General: oriented to person, oriented to place and oriented to time Extrem Right lower extremity: full ROM, normal capillary refill and edema Left lower extremity: full ROM, normal capillary refill and edema Psych Mental Status: mental status grossly normal Results Reviewed Results Reviewed: Brief summary of venous insufficiency testing is as follows: right great saphenous vein: Positive right small saphenous vein: negative right accessory vein: none present left great saphenous vein: Positive left small saphenous vein: negative left accessory vein: none present Please note there is no evidence of any venous aneurysms or significant tortuosity Assessment & Plan Assessment & Plan (1) Varicose veins of left lower extremity with inflammation: Code(s): I83.12 - Varicose veins of left lower extremity with inflammation Category: Medical Plan: This patient has varicose veins with inflammation. They continue to be a source of discomfort for the patient. The patient has tried conservative treatment with compression, leg elevation and exercise program for over 3 months time. They have been compliant with all treatment. This has provided minimal relief for the patient. I do not anticipate this course of treatment will alter the underlying etiology. The patient has been scheduled for lower extremity venous treatment inclusive of --- left great saphenous vein radiofrequency ablation. Risks, benefits, and complications of this procedure has been discussed in detail with the patient including but not limited to bleeding, infection, and the development of a DVT. The patient has demonstrated a clear understanding and has consented. We will schedule the patient as soon as possible. Thank you for allowing us to participate in this patient's care. If there are any questions or concerns please do not hesitate to contact us. Coding Level of Care Code Est Pt Level 4 (37825) Diagnoses Varicose veins of left lower extremity with inflammation I83.12
== END 2023-12-01 11:09 | disposition home or self-care (01) ==
PROVIDERS: PCP Physician Assistant; Visit Provider Surgery Vascular Surgery
DX: I83.12 Varicose veins of left lower extremity with inflammation (principal)
CPT/HCPCS: 99214

== ENCOUNTER → 2023-12-01 10:35 | Outpatient (BNVA) | payer OTHER, SELFPAY | PROVIDERS: PCP Physician Assistant; Visit Provider Surgery Vascular Surgery ==

== ENCOUNTER 2024-01-06 10:16 | Outpatient (AMB) | payer OTHER, SELFPAY ==
--- NOTE | 2024-01-06 10:23 | MHC.OFFVIS ---
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 Estimated Blood Loss: Minimal The patient was transferred to the procedure suite and the insufficient saphenous vein was mapped by ultrasound and diagrammed on the overlying skin. The depth and diameter of the vein(s) to be treated was documented. The varicose tributary veins and suitable access sites were identified and mapped as well. The patient was then positioned supine on the procedure table. The affected limb was prepped and draped in the usual sterile fashion. The RF catheter was placed on the sterile field, flushed and wiped down, prepared, and connected by a sterile cable. The patient was placed in a supine position and local anesthesia was instilled in the skin overlying the access site. A skin incision was made overlying the identified and mapped great saphenous vein entry site. The vein was accessed using ultrasound guidance and the Seldinger technique, a guide wire was introduced through the needle, which was then exchanged over the guide wire for a 6F sheath, which was secured in place. The guide wire was removed and the sheath was flushed. The RF catheter was placed into the vein through the sheath and preferentially, imaging was used to place the catheter tip just inferior to the superficial epigastric vein to preserve normal physiological flow in that vein. Additionally, it was confirmed by ultrasound guidance that the catheter tip was also placed a minimum of 1.5cm distal to the saphenofemoral junction. After the RF catheter position was verified by ultrasound, tumescent anesthesia was infiltrated, under ultrasound guidance, precisely into the perivenous compartment along the entire length of vein from the entry site to the saphenofemoral junction until a halo of fluid was noted around the vein. The patient was appropriately position. After RF catheter position was again confirmed with ultrasound imaging, and under direct external compression along the length of the heating element, RF energy was applied. The vein was segmentally ablated by heating a 10 cm segment and then indexing the catheter forward by 9.5 cm until the treatment length is completed. Device temperature was maintained at 120 plus or minus 5 degrees C with an initial power level of 4W/cm dropping to below 2W/cm for each treatment. Total vein length treated 40 cm Total cycles of RF 6. Repeat ultrasound of the saphenous vein was performed, confirming successful treatment. The catheter and sheath were withdrawn and hemostasis established with direct pressure. After assuring hemostasis, the skin incision over the saphenous vein was closed with a steristip and a compression wrap was applied from the level of the foot to the most proximal level of the thigh. Discharge instructions were given to the patient inclusive of follow-up ultrasound and recommended follow-up with us. [id number] - Endovenous RF, 1st Vein All charges added?: Procedure code (CPT) selection complete Assessment & Plan Assessment & Plan (1) Varicose veins of left lower extremity with inflammation: Comment: 01/06/2024 - left great saphenous vein radiofrequency ablation Code(s): I83.12 - Varicose veins of left lower extremity with inflammation Category: Medical Plan: See op note Coding Level of Care Code Procedure Only Diagnoses Varicose veins of left lower extremity with inflammation I83.12 CPT Codes Details - Vascular 1: 54781 - Endovenous RF, 1st Vein ([id number])
== END 2024-01-06 11:24 | disposition home or self-care (01) ==
PROVIDERS: PCP Physician Assistant; Visit Provider Surgery Vascular Surgery
DX: I83.12 Varicose veins of left lower extremity with inflammation (principal)
CPT/HCPCS: 36475

== ENCOUNTER → 2024-01-06 10:16 | Outpatient (BNVA) | payer OTHER, SELFPAY | PROVIDERS: PCP Physician Assistant; Visit Provider Surgery Vascular Surgery | DX: I83.12 Varicose veins of left lower extremity with inflammation (principal) | CPT/HCPCS: 36475 ==

== ENCOUNTER 2024-01-09 10:20 | Outpatient (REF) | payer OTHER, SELFPAY ==
--- NOTE | ~2024-01-09 | US_ITS ---
EXAMINATION: TRIPLEX SCANNING OF LEFT LOWER EXTREMITY; SUPERFICIAL ULTRASOUND WITH DOPPLER OF LEFT LOWER EXTREMITY CLINICAL INFORMATION: Status post radiofrequency ablation of the left great saphenous vein Originally performed on 01/06/2024. COMPARISON: 10/27/2023. TECHNIQUE: Color flow triplex imaging and compression Doppler were performed as well as superficial ultrasound with Doppler. FINDINGS: LEFT LOWER EXTREMITY DEEP VENOUS SYSTEM: Respiratory variation, normal compression and augmented flow are noted throughout the lower extremity. The visualized common femoral vein, femoral vein, profunda femoral vein, popliteal vein and the calf veins show no evidence of deep venous thrombosis. There is no evidence of Vela's cyst. SUPERFICIAL VENOUS SYSTEM: The left saphenous vein is occluded from the access site to 1.2 cm before the saphenofemoral junction. There is no extension of thrombus into the deep system. US/US venous duplex LE LT IMPRESSION: 1. No evidence of DVT. 2. Excellent appearance status post ablation of the left great saphenous vein. Electronically signed by: Ralph Newman MD 01/09/2024 11:37 AM EDT
== END 2024-01-09 10:21 | disposition home or self-care (01) ==
LOC: HO.US 10:20
PROVIDERS: PCP Physician Assistant; Visit Provider Surgery Vascular Surgery
DX: M79.605 Pain in left leg (principal)
CPT/HCPCS: 93971

== ENCOUNTER 2024-02-16 10:15 | Outpatient (AMB) | payer OTHER, SELFPAY ==
--- NOTE | 2024-02-16 10:19 | MHC.OFFVIS ---
Vital Signs 02/16/24 10:20 Height 5 ft 9 in Weight 238 lb BMI 35.1 Intake Visit Reasons: 2 week follow up Left GSV RFA 01/06/24 Intake Note: 2 week follow up left GSV RFA 01/06/24. Pt states Left LE feels good but Right LE is starting to bother him. Accompanied by: Self / Same As Patient Allergies No Known Allergies Allergy (Verified 02/16/24 10:22) HPI HPI 2 week follow up Left GSV RFA 01/06/24: Details: Pleasant 29-year-old gentleman presents for follow-up status post left great saphenous vein ablation. Reports that the venous cluster in his calf have decreased in his leg feels significantly better. It continues to improve and reports that that left leg feels much better. He is now concerned about his right lower extremity. It does have the similar symptoms of tiredness and heaviness. It has been affecting his work. He does have an ambulatory job and works at [employer]. He has been compliant with his compression stockings he now presents for evaluation of his right lower extremity. Of note postprocedure ultrasound of the left leg was negative for DVT. 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 [employer] Cognitive needs: No Hearing needs: No Vision needs: No Review of Systems Const Reports as per HPI ENT Reports no additional complaints Card Denies chest pain, Denies chest pain at rest and Denies chest pain with activity Resp Denies chest congestion and Denies cough GI Reports no additional complaints Musc Details: pain over varicosities, aching of lower extremities, swelling, cramping, heaviness and tiredness, itching Denies abnormal gait Skin/Breast Reports pruritus and Denies wounds Neuro Reports no additional complaints and Denies abnormal gait Psych Denies no additional complaints Physical Exam Vital Signs: BMI result Body Mass Index 35.1 Const General: cooperative, healthy appearing and comfortable Orientation/consciousness: oriented to person, oriented to place and oriented to time Neck Carotids: no bruits Chest Chest palpation & inspection: normal inspection of the chest and normal palpation of entire chest wall Resp Effort & Inspection: normal respiratory effort and able to speak in complete sentences Cardio Rate: regular rate Heart sounds: S1 normal heart sound present and S2 normal heart sound present Peripheral pulses: Peripheral pulses 2+ throughout GI Inspection: Yes normal to inspection Skin Other: +2 edema, large rope-like varicosities greater than 4 mm right calf CEAP Classification C4 - skin color changes Ep - Etiology Primary As - superficial veins P - reflux General skin exam: dry skin Neuro General: oriented to person, oriented to place and oriented to time Extrem Right lower extremity: full ROM, normal capillary refill and edema Left lower extremity: full ROM, normal capillary refill and edema Psych Mental Status: mental status grossly normal Results Reviewed Results Reviewed: Brief summary of venous insufficiency testing is as follows: right great saphenous vein: Positive right small saphenous vein: negative right accessory vein: none present left great saphenous vein: Ablated left small saphenous vein: negative left accessory vein: none present Please note there is no evidence of any venous aneurysms or significant tortuosity Assessment & Plan Assessment & Plan (1) Varicose veins of right lower extremity with inflammation: Code(s): I83.11 - Varicose veins of right lower extremity with inflammation Category: Medical Plan: This patient has varicose veins with inflammation. They continue to be a source of discomfort for the patient. The patient has tried conservative treatment with compression, leg elevation and exercise program for over 3 months time. They have been compliant with all treatment. This has provided minimal relief for the patient. I do not anticipate this course of treatment will alter the underlying etiology. The patient has been scheduled for lower extremity venous treatment inclusive of --- right great saphenous vein Radiofrequency ablation. Risks, benefits, and complications of this procedure has been discussed in detail with the patient including but not limited to bleeding, infection, and the development of a DVT. The patient has demonstrated a clear understanding and has consented. We will schedule the patient as soon as possible. Thank you for allowing us to participate in this patient's care. If there are any questions or concerns please do not hesitate to contact us. (2) Varicose veins of left lower extremity with inflammation: Comment: 01/06/2024 - left great saphenous vein radiofrequency ablation Code(s): I83.12 - Varicose veins of left lower extremity with inflammation Category: Medical Plan: See above Coding Level of Care Code Est Pt Level 4 (54245) Diagnoses Varicose veins of right lower extremity with inflammation I83.11 Varicose veins of left lower extremity with inflammation I83.12
[2024-02-16 10:20] VITALS: BMI 35.1
== END 2024-02-16 10:37 | disposition home or self-care (01) ==
PROVIDERS: PCP Physician Assistant; Visit Provider Surgery Vascular Surgery
DX: I83.11 Varicose veins of right lower extremity with inflammation (principal); I83.12 Varicose veins of left lower extremity with inflammation
CPT/HCPCS: 99214

== ENCOUNTER → 2024-02-16 10:15 | Outpatient (BNVA) | payer OTHER, SELFPAY | PROVIDERS: PCP Physician Assistant; Visit Provider Surgery Vascular Surgery ==

== ENCOUNTER 2024-09-07 07:09 | Outpatient (AMB) | payer OTHER, SELFPAY ==
--- OUTSIDE RECORDS SUMMARY | 2024-09-07 07:10 | XMS_ITS | Clinical Summary ---
Author Organization [facility] Address [address] [place] [address] Care Team Providers Care Audio Narrator Name Role Phone StevensonSil leung ZACH Primary Care Provider Source Comments PLEASE NOTE, if this patient is a minor, it may be UNLAWFUL to discuss sensitive information that is contained in these records (such as FAMILY PLANNING, MENTAL HEALTH or SUBSTANCE ABUSE) with the minor patient's parent or other person without the patient's specific authorization.[facility] Allergies No known active allergies Medications No known medications Active Problems Problem Noted Date Diagnosed Date Varicose veins of both lower extremities 018 Overview (09/15/2017): Sees [facility] vascular - gave stocking - will get venous u/s and RTC in 2 months. Social History Tobacco Use Types Packs/Day Years Used Date Smoking Tobacco: Never Smokeless Tobacco: Never Alcohol Use Standard Drinks/Week Comments Yes 0 (1 standard drink = 0.6 oz pur e alcohol) occa Social Connections Answer Date Recorded Connectedness 0 01/20/2024 Financial Resource Strain Answer Date R ecorded Financial Resource Strain 0 2018 Stress Answer Date Recorded Stress 0 12/25/2018 Physical Activity Answer Date Recorded Physical Activity 0 12/25/2018 Food Insecurity Answer Date Recorded Food 0 01/26/2024 Transportation Needs Answer Date Record ed Transportation 0 12/25/2018 Housing Stability Answer Date Recorded Housing 0 12/25/2018 Safety and Environment Answer Date Wilian rded Safety 0 12/25/2018 Utilities Answer Date Recorded Utilities 0 12/25/2018 Employment Answer Date Recorded Stress 0 01/20/2024 Sex and Gender Information Value Date Recorded Sex Assigned at Male 08/04/2017 10:46 AM PDT Legal Sex Male 10:28 AM PDT Gender Identity Male 08/04/2017 10:46 AM PDT Sexual Orientation Lesbian or Hauser 08/04/2017 10 :46 AM PDT Last Filed Vital Signs Vital Sign Reading Time Taken Comments Blood Pressure 153/83 01/17/2018 2:30 PM EDT Pulse 90 01/17/2018 2:30 PM EDT Temperature 36.8 ??C (98.2 ??F) 01/17/2018 2:30 PM ED T Respiratory Rate 18 01/17/2018 2:30 PM EDT Oxygen Saturation 99% 01/17/2018 2:30 PM EDT Inhaled Oxygen Concentration - - Weight 104.3 kg (230 lb) 08/04/2017 1:46 PM EDT Height 175.3 cm (5' 9 ) 08/04/2017 1:46 PM EDT Body Mass Index 33.97 08/04/2017 1:46 PM EDT Plan of Treatment Not on file Insurance [facility] ([facility]) Member Subscriber Plan / Payer (Ef fective 2016-Present) Name:Kearns Larry Relation to Subscriber:Self Name:Larry Kearns Payer ID:[id number] Group ID:Not on file Type:Indemnity Address: [address] [place] [id number] Care Teams Audio Narrator Relationship Specialty Start Date End Date Sil Rucker FNP [address] [place] [address] PCP - General 11/23/18
[2024-09-07 07:37] VITALS: BMI 35.1
--- NOTE | 2024-09-07 07:37 | A.OFFVIS_ITS ---
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 Anesthesia: Local infiltration 5 cc, Tumescent [address] Echavarria Captain Airline Pilot Jackie HERNANDEZ Estimated Blood Loss: minimal Specimen: Varicose veins The patient was transferred to the procedure suite and the insufficient saphenous vein was mapped by ultrasound and diagrammed on the overlying skin. The depth and diameter of the vein(s) to be treated was documented. The varicose tributary veins and suitable access sites were identified and mapped as well. The patient was then positioned supine on the procedure table. The affected limb was prepped and draped in the usual sterile fashion. The RF catheter was placed on the sterile field, flushed and wiped down, prepared, and connected by a sterile cable. The patient was placed in supine position and local anesthesia was instilled in the skin overlying the access site. A skin incision was made overlying the identified and mapped great saphenous vein entry site. The vein was accessed using ultrasound guidance and the Seldinger technique, a guide wire was introduced through the needle, which was then exchanged over the guide wire for a 6F sheath, which was secured in place. The guide wire was removed and the sheath was flushed. The RF catheter was placed into the vein through the sheath and preferentially, imaging was used to place the catheter tip just inferior to the superficial epigastric vein to preserve normal physiological flow in that vein. Additionally, it was confirmed by ultrasound guidance that the catheter tip was also placed a minimum of 1.5cm distal to the saphenofemoral junction. After the RF catheter position was verified by ultrasound, tumescent anesthesia was infiltrated, under ultrasound guidance, precisely into the perivenous compartment along the entire length of vein from the entry site to the saphenofemoral junction until a halo of fluid was noted around the vein. The patient was then placed in supine position to further exsanguinate the superficial venous system. After RF catheter position was again confirmed with ultrasound imaging, and under direct external compression along the length of the heating element, RF energy was applied. The vein was segmentally ablated by heating a 8 cm segment and then indexing the catheter forward by 7.5 cm until the treatment length is completed. Device temperature was maintained at 120 plus or minus 5 degrees C with an initial power level of 40W dropping to below 20W for each treatment. Total vein length treated 40 cm Total cycles of RF 6. Repeat ultrasound of the saphenous vein was performed, confirming successful treatment. The catheter and sheath were withdrawn and hemostasis established with direct pressure. After assuring hemostasis, the skin incision over the saphenous vein was closed with a bandage and a compression wrap, and/ or graduated compression stocking was applied from the level of the foot to the most proximal level of the thigh. [id number] - Endovenous RF, 1st Vein All charges added?: Procedure code (CPT) selection complete Assessment & Plan Assessment & Plan (1) Varicose veins of right lower extremity with inflammation: Comment: 09/07/2024 - right great saphenous vein radiofrequency ablation Code(s): I83.11 - Varicose veins of right lower extremity with inflammation Category: Medical Plan: See op note Coding Level of Care Code Est Pt Level 4 (00241) Diagnoses Varicose veins of right lower extremity with inflammation I83.11 CPT Codes Details - Vascular 1: 76860 - Endovenous RF, 1st Vein ([id number])
== END 2024-09-07 08:29 | disposition home or self-care (01) ==
LOC: HO.HVS 07:09
PROVIDERS: PCP Physician Assistant; Visit Provider Surgery Vascular Surgery
DX: I83.11 Varicose veins of right lower extremity with inflammation (principal)
CPT/HCPCS: 36475

== ENCOUNTER → 2024-09-07 07:09 | Outpatient (BNVA) | payer OTHER, SELFPAY | PROVIDERS: PCP Physician Assistant; Visit Provider Surgery Vascular Surgery | DX: I83.11 Varicose veins of right lower extremity with inflammation (principal) | CPT/HCPCS: 36475; J2003; J2004 ==

== ENCOUNTER 2024-09-20 10:29 | Outpatient (AMB) | payer OTHER, SELFPAY ==
--- NOTE | 2024-09-20 10:38 | MHC.OFFVIS ---
Intake Visit Reasons: 2 week Right GSV RFA 04/27/24 Intake Note: Patient presents for 2 week follow up right GSV RFA. Patient states he has some minimal soreness but that his incisions are healing well. Accompanied by: Self / Same As Patient Allergies No Known Allergies Allergy (Verified 09/20/24 10:39) HPI HPI 2 week Right GSV RFA 04/27/24: Details: The patient is a 29-year-old male presenting with follow-up for right great saphenous vein ablation. He underwent a recent ablation procedure to manage vein disease. Postoperatively, initial symptoms included swelling and purple discoloration at the operative site, but these symptoms have abated. He reports improvement in both legs, and has no issues working currently at [employer] The patient maintains a high level of mobility and uses compression garments due to occupational demands. There are no physical restrictions, and he can resume gym and aquatic activities without limitation. 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 [employer] Cognitive needs: No Hearing needs: No Vision needs: No Review of Systems Const All systems reviewed & are unremarkable except as noted in HPI and below Reports no additional complaints ENT Reports Normal hearing present Card Denies chest pain, Denies chest pain at rest, Denies chest pain with activity and Denies pedal edema Resp Denies cough GI Denies abdominal pain Musc Denies abnormal gait, Denies muscle cramps and Denies radiating pain into limb Skin/Breast Denies skin ulcer and Denies wounds Neuro Reports Normal hearing present and Denies abnormal gait Psych Reports no additional complaints Physical Exam Const General: cooperative, healthy appearing and comfortable Orientation/consciousness: oriented to person, oriented to place and oriented to time HEENT Head: Yes normal to inspection Neck Neck: Yes normal visual inspection Carotids: no bruits Chest Chest palpation & inspection: normal inspection of the chest Resp Effort & Inspection: normal respiratory effort and able to speak in complete sentences Auscultation: clear to auscultation bilaterally, no crackles, no rales, no rhonchi and no wheezes Cardio Rate: regular rate Rhythm: regular rhythm Heart sounds: S1 normal heart sound present and S2 normal heart sound present Bruits: no carotid bruits Peripheral pulses: Peripheral pulses 2+ throughout GI Inspection: Yes normal to inspection Skin Wounds: no wounds Hair: normal Neuro General: oriented to person, oriented to place and oriented to time Cranial nerves: Yes CN's II-XII intact bilaterally and Yes Normal hearing present Cognition (Neuro): normal cognition Motor exam (neuro): 5/5 motor strength present throughout Extrem Other: venous exam: No significant superficial varicosities or spider telangiectasias, minimal edema General: No clubbing, No cyanosis and No edema Psych Appearance: grossly normal Mental Status: mental status grossly normal Speech and movement: Normal speech and movement present Assessment & Plan Assessment & Plan (1) Varicose veins of left lower extremity with inflammation: Comment: 01/06/2024 - left great saphenous vein radiofrequency ablation Code(s): I83.12 - Varicose veins of left lower extremity with inflammation Category: Medical Plan: See below (2) Varicose veins of right lower extremity with inflammation: Comment: 09/07/2024 - right great saphenous vein radiofrequency ablation Code(s): I83.11 - Varicose veins of right lower extremity with inflammation Category: Medical Plan: The patient has done extremely well with all venous treatments. Patient's may often experience postprocedure phlebitic episodes and I have discussed with the patient use of warm compresses and NSAIDS if tolerated for pain discomfort. In addition, I have discussed continued conservative measures including use of compression, leg elevation, and exercise. The patient was also given an information sheet regarding appropriate use of compression stockings and future purchases. Thank you for allowing us to care for your patient with venous disease. Plan Patient was informed and verbally consented to the use of an ambient scribe for clinic note documentation during this visit. Patient Instructions: - Wear compression garments as necessary - Elevate legs during rest to aid venous return - Resume gym and swimming activities without restrictions - Monitor for new symptoms related to vein health Coding Level of Care Code Est Pt Level 3 (12303) Diagnoses Varicose veins of left lower extremity with inflammation I83.12 Varicose veins of right lower extremity with inflammation I83.11
--- OUTSIDE RECORDS SUMMARY | 2024-09-20 11:01 | XMS_ITS | Clinical Summary ---
Author Organization [facility] Address [address] [place] [address] Care Team Providers Care Drafter Name Role Phone StevensonSil leung ZACH Primary [...] of Treatment Not on file Insurance HNE ([facility]) Member Subscriber Plan / Payer (Ef fective 2016-Present) Name:Kearns Larry Relation to Subscriber:Self Name:Larry Kearns Payer ID:[id number] Group ID:Not on file Type:Indemnity Address: [address] [place] [id number] Care Teams Drafter Relationship Specialty Start Date End Date Sil Rucker FNP [address] [place] [address] PCP - General 11/23/18
== END 2024-09-20 10:58 | disposition home or self-care (01) ==
LOC: HO.HVS 10:30
PROVIDERS: PCP Physician Assistant; Visit Provider Surgery Vascular Surgery
DX: I83.12 Varicose veins of left lower extremity with inflammation (principal); I83.11 Varicose veins of right lower extremity with inflammation
CPT/HCPCS: 99213